=== PATIENT | male | born 1995 | race Caucasian/White ===

== ENCOUNTER 2016-09-14 12:22 | Emergency (ER) | payer OTHER | END 2016-09-14 13:18 | disposition home or self-care (01) | LOC: ER1 12:22 | DX: J02.0 Streptococcal pharyngitis (principal) | CPT/HCPCS: 87081; 87880; 96372; 99282; J0561 ==

== ENCOUNTER 2016-10-15 16:32 | Emergency (ER) | payer OTHER | END 2016-10-15 17:14 | disposition home or self-care (01) | LOC: ER1 16:32 | DX: S93.402A Sprain of unspecified ligament of left ankle, initial encounter (principal); F17.210 Nicotine dependence, cigarettes, uncomplicated; W10.9XXA Fall (on) (from) unspecified stairs and steps, initial encounter; X50.1XXA Overexertion from prolonged static or awkward postures, initial encounter; Y93.K1 Activity, walking an animal; Y92.009 Unspecified place in unspecified non-institutional (private) residence as the place of occurrence of the external cause | CPT/HCPCS: 73610; 99283 ==